=== PATIENT | female | born 1970 | race Caucasian/White ===

== ENCOUNTER 2020-09-20 07:06 | Emergency (ER) | payer MEDICARE, OTHER ==
[~2020-09-20] VITALS: Ht 170.2 cm; Wt 110.2 kg
== END 2020-09-20 12:00 | disposition home or self-care (01) ==
LOC: ER1 07:06
DX: Z23 Encounter for immunization (principal); U07.1 COVID-19
CPT/HCPCS: 0240U; 71045; 87081; 87880; 96374; 96375; 99283; J1885; J2405; J7030; M0243

== ENCOUNTER → 2021-10-19 | Outpatient (CLI) | payer MEDICARE | LOC: KOH-I 10:08 | DX: M25.562 Pain in left knee (principal); M17.12 Unilateral primary osteoarthritis, left knee | CPT/HCPCS: 73562 ==

== ENCOUNTER → 2021-10-28 | Outpatient (CLI) | payer MEDICARE | LOC: EMI 14:19 | DX: M25.562 Pain in left knee (principal); S83.232A Complex tear of medial meniscus, current injury, left knee, initial encounter | CPT/HCPCS: 73721 ==